=== PATIENT | female | born 1975 | race Caucasian/White ===

== ENCOUNTER 2020-09-01 20:15 | Emergency (ER) | payer OTHER ==
[~2020-09-01] VITALS: Ht 149.9 cm; Wt 63.0 kg
[2020-09-01 20:40] VITALS: BP 174/117
--- NOTE | 2020-09-01 20:43 | PHYS DOC ---
Past Medical History Past Medical History: Hypothyroid Past Surgical History: Appendectomy, Cholecystectomy, Hysterectomy Alcohol Use: Occasionally Drug Use: None General Adult EDM: Chief Complaint: MANIC BEHAVIOR HPI: HPI: Patient is a 45 year old female arrives EMS with a chief complaint of delusional and manic behavior. History physical review of systems are all limited due to her psychiatric condition. Patient states she was abnormal for regional yesterday for abdominal pain and has a CAT scan as well as laboratory evaluation. Patient states she is having abdominal cramping that is better. Patient denies any suicidal homicidal ideation but feels very paranoid and erratic. Patient has had some recent noncompliance with her medications. Patient was at her daughter's and felt unsafe the ambulance was called. Review of Systems: Review of Systems: Constitutional: Denies fever or chills. [] Eyes: Denies change in visual acuity. [] HENT: Denies nasal congestion or sore throat. [] Respiratory: Denies cough or shortness of breath. [] Cardiovascular: Denies chest pain or edema. [] GI: Complains of abdominal pain but no nausea, vomiting, bloody stools or diarrhea. [] : Denies dysuria. [] Musculoskeletal: Denies back pain or joint pain. [] Integument: Denies rash. [] Neurologic: Denies headache, focal weakness or sensory changes. [] Endocrine: Denies polyuria or polydipsia. [] Lymphatic: Denies swollen glands. [] Psychiatric: Complains of delusions but denies suicidal ideation Heart Score: Risk Factors: Risk Factors: DM, Current or recent (<one month) smoker, HTN, HLP, family history of CAD, obesity. Risk Scores: Score 0 - 3: 2.5% MACE over next 6 weeks - Discharge Home Score 4 - 6: 20.3% MACE over next 6 weeks - Admit for Clinical Observation Score 7 - 10: 72.7% MACE over next 6 weeks - Early Invasive Strategies Allergies: Allergies: Allergies Coded Allergies Type Severity Reaction Last Updated Verified No Known Drug Allergies 02/13/14 No Physical Exam: PE: Constitutional: Well developed, well nourished, no acute distress, non-toxic appearance. [] HENT: Normocephalic, atraumatic, bilateral external ears normal, no trismus nose normal. [] Eyes: PERRLA, EOMI, conjunctiva normal, no discharge. [] Neck: Normal range of motion, no tenderness, supple, no stridor. [] Cardiovascular:Heart rate regular rhythm, peripheral pulse intact cap refill is brisk Lungs & Thorax: Bilateral breath sounds clear to auscultation [] Abdomen: , soft, no tenderness, no masses, no pulsatile masses. [] Skin: Warm, dry, no erythema, no rash. [] Back: No tenderness, no CVA tenderness. [] Extremities: No tenderness, no cyanosis, no clubbing, ROM intact, no edema. [] Neurologic: Alert and oriented X 3, normal motor function, normal sensory function, no focal deficits noted. [] Psychologic: Bizarre affect, anxious EKG: EKG: [] Radiology/Procedures: Radiology/Procedures: [] Course & Med Decision Making: Course & Med Decision Making Pertinent Labs and Imaging studies reviewed. (See chart for details) [] Patient is not suicidal or homicidal. Patient does recall her event at [facility] yesterday but is unwilling to sign a consent so I can review the records. Patient states she does not want to be here and I do not have grounds to hold her. Patient states she does not want outpatient resources. Ewelina Disclaimer: Ewelina Disclaimer: This electronic medical record was generated, in whole or in part, using a voice recognition dictation system. Departure Departure Impression: Primary Impression: Bizarre behavior Disposition: 07 AMA/ELOPED/LWBS Condition: STABLE Referrals: UNKNOWN PCP NAME (PCP) [facility] [place] [address] [place] [address] [facility] [address] [place] [address] [facility] [address] Patient Instructions: Hallucinations and Delusions Additional Instructions: EMERGENCY DEPARTMENT GENERAL DISCHARGE INSTRUCTIONS THANK YOU for coming to [facility] Emergency Department (ED) today and trusting us with your care. We trust that you had a positive experience in our Emergency Department. If you wish to speak to the department Management you can contact the psychology department chair at . YOUR FOLLOW UP INSTRUCTIONS ARE FOLLOWS: Do you have a private doctor? If you do not have a private doctor, please ask for a resource list of physicians or clinics that may be able to assist you with follow up care. The Emergency Physician has interpreted your x-rays. The X-ray specialist will also review them. If there is a change in the findings you will be notified in 48 hours when at all possible. A lab test or lab culture may have been done, your results will be reviewed and you will be notified if you need a change in treatment. ADDITIONAL INSTRUCTIONS AND INFORMATION Your care today has been supervised by a physician who is specially trained in emergency care. Many problems require more than one evaluation for a complete diagnosis and treatment. We recommend that you schedule your follow up appointment as recommended to ensure complete treatment of your illness or injury. If you are unable to obtain follow up care and continue to have a problem, or if your condition worsens we recommend that you return to the ED. We are not able to safely determine your condition over the phone nor are we able to give sound medical advice over the phone. For these safety reasons, if you call for medical advice we will ask you to come to the ED for further evaluation If you have any questions regarding these discharge instructions please call the ED at . SAFETY INFORMATION In the interest of safety, wellness, and injury prevention; we encourage you to wear your seatbelt, if you smoke; quit smoking, and we encourage your family to use protective helmet for bicycling and other sporting events that present an increased risk for head injury. IF YOUR SYMPTOMS WORSEN OR NEW SYMPTOMS DEVELOP, OR YOU HAVE CONCERNS ABOUT YOUR CONDITION; OR IF YOUR CONDITION WORSENS WHILE YOU ARE WAITING FOR YOUR FOLLOW UP APPOINTMENT; EITHER CONTACT YOUR PRIMARY CARE DOCTOR, THE PHYSICIAN WHOSE NAME AND NUMBER YOU WERE GIVEN, OR RETURN TO THE ED IMMEDIATELY. DIPESH PALMA MD Sep 01, 2020 20:43
== END 2020-09-01 21:15 | disposition left against medical advice (07) ==
LOC: ER 20:15
DX: R46.1 Bizarre personal appearance (principal); E03.9 Hypothyroidism, unspecified
CPT/HCPCS: 99284